=== PATIENT | female | born 1960 | race Caucasian/White ===

== ENCOUNTER 2016-09-21 14:30 | Emergency (ER) | payer BC ==
[~2016-09-21] VITALS: Ht 167.6 cm; Wt 80.0 kg
[~2016-09-21 14:30] MED LIST: LORTA5 PO; PARO12.5CR PO
[2016-09-21 14:34] VITALS: BP 151/95; PULSE 83; RESP 20; TEMP 97.7; O2SAT 98
--- NOTE | 2016-09-21 14:56 | PD ---
HPI Chief Complaint: Dizziness Time Seen by Provider: 14:42 Travel History International Travel<30 days: No Contact w/Intl Traveler<30days: No Traveled to known affect area: No History of Present Illness HPI The patient was seen and examined in the presence of the nurse. This patient complains of a room spinning dizziness. There is a circular motion to her dizziness which is worse when she turns her head. She is developed nausea and vomiting. Denies headache or neurologic deficit. Duration one day. No alleviating factors. Symptoms are moderately severe. sHe is diaphoretic. No chest pain or syncope. PFSH Past Medical History Cancer: No Cardiovascular Problems: No Diabetes: No Endocrine: No Genitourinary: No Hepatitis: No Hiatal Hernia: No Immune Disorder: No Musculoskeletal: No Neurologic: No Psychiatric: No Reproductive: No Respiratory: No Thyroid Disease: No ?: Not LMP: NOW Past Surgical History Abdominal Surgery: Yes (C SECTION) Cardiac Surgery: No Ear Surgery: No Endocrine Surgery: No Eye Surgery: No Genitourinary Surgery: No Gynecologic Surgery: Yes (LEFT BREAST BIOPSY) Joint Replacement: No Oral Surgery: No Pacemaker: No Thoracic Surgery: No Social History Alcohol Use: No Tobacco Use: No Substance Use: No Allergies-Medications (Allergen,Severity, Reaction): Coded Allergies: Sulfa (Verified Allergy, Severe, Hives, 09/21/16) Reported Meds & Prescriptions Reported Meds & Active Scripts Active Reported Oxycodone-Acetaminophen 5-325 mg Tab Unknown Dose PO DIRECTED PRN Paxil CR (Paroxetine HCl) 12.5 Mg Tab 12.5 Mg PO DAILY Review of Systems General / Constitutional: No: Fever Eyes: No: Visual changes HENT: Positive: Vertigo, Lightheadedness, No: Headaches Cardiovascular: Positive: Diaphoresis, No: Chest Pain or Discomfort Respiratory: No: Shortness of Breath Gastrointestinal: Positive: Nausea, Vomiting, No: Abdominal Pain Genitourinary: No: Dysuria Musculoskeletal: No: Pain Skin: No Rash Neurologic: No: Weakness Psychiatric: No: Depression Endocrine: No: Polydipsia Hematologic/Lymphatic: No: Easy Bruising Physical Exam Narrative GENERAL: Well-nourished, well-developed patient with vertigo and nausea . SKIN: Warm and diaphoretic. HEAD: Atraumatic. Normocephalic. EYES: Pupils equal and round. No scleral icterus. No injection or drainage. ENT: No nasal bleeding or discharge. Mucous membranes pink and moist. NECK: Trachea midline. No JVD. CARDIOVASCULAR: Regular rate and rhythm. No murmur appreciated. RESPIRATORY: No accessory muscle use. Clear to auscultation. Breath sounds equal bilaterally. GASTROINTESTINAL: Abdomen soft, non-tender, nondistended. Hepatic and splenic margins not palpable. Colostomy present MUSCULOSKELETAL: No obvious deformities. No clubbing. No cyanosis. No edema. NEUROLOGICAL: Awake and alert. No obvious cranial nerve deficits. Motor grossly within normal limits. Normal speech. PSYCHIATRIC: Appropriate mood and affect; insight and judgment normal. Data Data Last Documented VS Vital Signs Date Time Temp Pulse Resp B/P Pulse Ox O2 Delivery O2 Flow Rate FiO2 09/21/16 14:59 65 98 Room Air 09/21/16 14:34 97.7 20 151/95 Orders Sodium Chlor 0.9% 1000 Ml Inj (Ns 1000 M (09/21/16 15:00) Ondansetron Inj (Zofran Inj) (09/21/16 15:00) Meclizine (Antivert) (09/21/16 15:00) Iv Access Insert/Monitor (09/21/16 14:49) Complete Blood Count With Diff (09/21/16 14:49) Basic Metabolic Panel (Bmp) (09/21/16 14:49) Labs Laboratory Tests Test 09/21/16 15:00 White Blood Count 5.6 TH/MM3 Red Blood Count 4.08 MIL/MM3 Hemoglobin 11.5 GM/DL Hematocrit 34.7 % Mean Corpuscular Volume 85.1 FL Mean Corpuscular Hemoglobin 28.2 PG Mean Corpuscular Hemoglobin 33.1 % Concent Red Cell Distribution Width 14.5 % Platelet Count 218 TH/MM3 Mean Platelet Volume 7.5 FL Neutrophils (%) (Auto) 70.5 % Lymphocytes (%) (Auto) 23.4 % Monocytes (%) (Auto) 5.7 % Eosinophils (%) (Auto) 0.2 % Basophils (%) (Auto) 0.2 % Neutrophils # (Auto) 4.0 TH/MM3 Lymphocytes # (Auto) 1.3 TH/MM3 Monocytes # (Auto) 0.3 TH/MM3 Eosinophils # (Auto) 0.0 TH/MM3 Basophils # (Auto) 0.0 TH/MM3 CBC Comment DIFF FINAL Differential Comment Sodium Level 142 MEQ/L Potassium Level 3.6 MEQ/L Chloride Level 107 MEQ/L Carbon Dioxide Level 21.5 MEQ/L Anion Gap 14 MEQ/L Blood Urea Nitrogen 12 MG/DL Creatinine 0.94 MG/DL Estimat Glomerular Filtration 62 ML/MIN Rate Random Glucose 125 MG/DL Calcium Level 9.2 MG/DL MDM Medical Decision Making Medical Screen Exam Complete: Yes Emergency Medical Condition: Yes Medical Record Reviewed: Yes Differential Diagnosis Positional vertigo, labyrinthitis, dehydration, gastroenteritis Narrative Course I have reviewed the patient's electronic medical record. IV placed I gave her IV Zofran followed by 1 L normal saline IV bolus I gave her a dose of meclizine CBC is normal Metabolic profile is normal Extended cardiac monitoring reveals sinus rhythm without ectopy Vital signs are normal She is neurologically intact and on recheck she feels somewhat improved. Prescribed her meclizine and Zofran Recommend primary care follow-up Diagnosis Primary Impression: Positional vertigo Qualified Code: H81.10 - Positional vertigo, unspecified laterality Additional Instructions: The patient was advised to follow up with their physician and return if they worsen. The patient was warned about potential sedation for the medications they will receive on prescription. Med/Other Pt SpecificInfo: Prescription(s) given Scripts Meclizine 25 Mg Tab25 Mg PO TID PRN (VERTIGO) #20 TAB Ref 0 Prov:Saleem Madden MD 09/21/16 Ondansetron (Zofran)4 Mg Tab4 Mg PO Q6HR PRN (NAUSEA OR VOMITING) #15 TAB Ref 0 Prov:Saleem Madden MD 09/21/16 Disposition: 01 DISCHARGE HOME Condition: Stable Saleem Madden MD Sep 21, 2016 14:56
[2016-09-21] MEDS ORDERED: ONDANSETRON HCL 4 MG/2 ML VIAL IVP ONE (15:00)
[2016-09-21] MEDS ORDERED: SODIUM CHLOR 0.9% 1000 ML INJ 1,000 ML IV ONE (15:00)
[2016-09-21] MEDS ORDERED: MECLIZINE HCL 25 MG TAB PO ONE (15:00)
[2016-09-21] MEDS ORDERED: PARO12.5CR PO (15:05)
[2016-09-21] MEDS ORDERED: OXYC1TAB63 PO (15:06)
[2016-09-21 15:15] LABS: BASOPHIL % 0.2 % (0.0-2.0); EOSINOPHIL % 0.2 % (0.0-4.0); HEMATOCRIT 34.7 % (35.0-46.0); HEMO FLAGS DIFF FINAL; LYMPH % 23.4 % (9.0-44.0); LYMPHOCYTE # 1.3 TH/MM3 (1.0-4.8); MEAN CELL VOLUME 85.1 FL (80.0-100.0); MEAN CORPUSCULAR HEMOGLOBIN 28.2 PG (27.0-34.0); MEAN CORPUSCULAR HGB CONC 33.1 % (32.0-36.0); MONO % 5.7 % (0.0-8.0); NEUT % 70.5 % (16.0-70.0); PLATELET COUNT 218 TH/MM3 (150-450); RED BLOOD COUNT 4.08 MIL/MM3 (4.00-5.30); RED CELL DISTRIBUTION WIDTH 14.5 % (11.6-17.2); WHITE BLOOD COUNT 5.6 TH/MM3 (4.0-11.0)
[2016-09-21 15:22] LABS: POTASSIUM 3.6 MEQ/L (3.5-5.1)
[2016-09-21 15:25] LABS: BICARBONATE 21.5 MEQ/L (21.0-32.0)
[2016-09-21] MEDS ORDERED: MECL-62 PO (16:13)
[2016-09-21] MEDS ORDERED: ZOFR4TAB PO (16:13)
[2016-09-21 16:21] VITALS: BP 111/56; PULSE 70; RESP 17; O2SAT 98
== END 2016-09-21 17:10 | disposition home or self-care (01) ==
LOC: PHED 14:30
DX: R42 Dizziness and giddiness (principal); R11.2 Nausea with vomiting, unspecified
CPT/HCPCS: 80048; 85025; 96361; 96374; 99284; J2405; J7030

== ENCOUNTER → 2017-10-19 | Outpatient (CLI) | payer BC ==
[~2017-10-19] MED LIST changes: -LORTA5 PO; +MECL-62 PO; +OXYC1TAB63 PO; +ZOFR4TAB PO
--- NOTE | 2017-10-20 12:59 | EKG ---
Date Performed: 10/19/2017 Time Performed: 15:22:23 PTAGE: 56 years EKG: SINUS BRADYCARDIA MARKED LEFT AXIS DEVIATION INCOMPLETE RIGHT BUNDLE BRANCH BLOCK ABNORMAL ECG NO PREVIOUS TRACING DOCTOR: Leroy Singh Interpretating Date/Time 10/20/2017 12:52:03
== END ==
LOC: CPRE 14:55
PROVIDERS: ATTEND Obstetrics & Gynecology
DX: Z01.810 Encounter for preprocedural cardiovascular examination (principal)
CPT/HCPCS: 93005

== ENCOUNTER → 2017-10-27 | Day surgery (SDC) | payer BC ==
[~2017-10-27] VITALS: Ht 170.2 cm; Wt 77.9 kg
[~2017-10-27] MED LIST changes: +ACETAMINOPHEN 1000 MG/100 ML 100 ML IV ONE; +APREPITANT 40 MG CAP ONE; +CHLORHEXIDINE GLUCONATE 2 % 1 PACK (2 CLOTHS) TOPICAL PRN; +DEXAMETHASONE SOD PHOS 4 MG/ML VIAL IV ONE; +DO NOT ADM ANY ANTICOAGULANT DRUGS PRN; +FAMOTIDINE 20 MG/2 ML VIAL ONE; +IBUPROFEN 600 MG TAB PO PRN; +KETOROLAC TROMETHAMINE 30 MG/ML (IVP) VIAL IV PUSH ONE; +KETOROLAC TROMETHAMINE 30 MG/ML (IVP) VIAL IVP PRN; +LACTATED RINGER'S 1000 ML INJ 1,000 ML IV SCH; +LACTATED RINGER'S 1000 ML IV PRN; +LIDOCAINE HCL 1% PF 5 ML SYRINGE OTHER ONE; -MECL-62 PO; +METOPROLOL TARTRATE 25 MG TAB PO PRN; +MIDAZOLAM HCL 2 MG/2 ML VIAL ONE; +MORPHINE SULFATE 2 MG/ML INJ IV PUSH PRN; +ONDANSETRON HCL 4 MG/2 ML VIAL IV ONE; +ONDANSETRON HCL 4 MG/2 ML VIAL IVP PRN; -OXYC1TAB63 PO; +POVIDONE IODINE 5% (ANTISEPSIS KIT) 4 APPLICATIONS EACH NARE PRN; +PROMETHAZINE INJ 25 MG/ML VIAL IM PRN; +PROPOFOL 200 MG/20 ML AMP IV ONE; +SODIUM CHLORID 0.9% 500 ML IV PRN; +SODIUM CHLORIDE 0.9% FLUSH 10 ML FLUSH IV FLUSH PRN; +SODIUM CHLORIDE 0.9% FLUSH 10 ML FLUSH IV FLUSH SCH; +SUCCINYLCHOLINE CHLORIDE 200 MG/10 ML VIAL IV ONE; -ZOFR4TAB PO; +ceFAZolin 2 GM PREMIX 50 ML IV ONE; +diphenhydrAMINE HCL 25 MG CAP PO PRN; +oxyCODONE/ACETAMINOPHEN 5 MG/325 MG TAB PO PRN
[2017-10-27 13:36] VITALS: BP 112/70; PULSE 64; RESP 18; TEMP 97.9; O2SAT 100
--- NOTE | 2017-10-27 13:37 | MP ---
cc: FISH GOSS M.D., GEORGE MD DATE OF SURGERY 10/27/2017 PREOPERATIVE DIAGNOSIS Perimenopausal bleeding. PROCEDURE Exam under anesthesia, diagnostic hysteroscopy with dilatation and curettage and endometrial ablation with the NovaSure device. POSTOPERATIVE DIAGNOSIS Perimenopausal bleeding. SURGEON Vincent. ANESTHESIA General endotracheal intubation. ESTIMATED BLOOD LOSS Less than 25 cc. SPECIMEN Surgical specimens included endocervical and endometrial biopsies. OPERATIVE FINDINGS The patient had a large normal-appearing cervix. Endometrial cavity was symmetrical; measurements were 8.0 cm in length and 3.0 cm in width. The NovaSure device generated a wattage of 103 and the duration of the ablation was 94 seconds. INDICATIONS FOR PROCEDURE Patient with abnormal bleeding associated with menopause. Ultrasound revealed a slightly thickened endometrial cavity. Recommendation was to proceed with diagnostic hysteroscopy, biopsy and possible endometrial ablation. The patient received Ancef 2 grams prophylactically. She underwent general anesthesia with endotracheal intubation. She was then carefully positioned in the dorsal lithotomy position using candy-cane stirrups. She had sequentials placed on the lower extremities for VTE prophylaxis. She was prepped and draped. A timeout was conducted and agreed by all present in the room. Examination revealed findings as stated above. There were no focal abnormalities present. The uterus was intact. There was no perforation, mass lesion or deformity. The cervix was easily visualized with a bivalve retractor. The cervix was secured anteriorly with a single-tooth tenaculum and then endocervical curettings were obtained and labeled appropriately and sent in formalin. A uterine sound was placed to about 8 cm in a slightly anteverted fashion. The cervix was then dilated to accommodate a rigid 5 mm hysteroscope which was used to examine the cavity and findings were as described above. This was followed by simple curettage of the endometrium and then the NovaSure device was utilized. Measurements were as stated above. After complete electrodesiccation of the cavity that device was removed. Re-examination of the cavity proved intact. There was no perforation or active bleeding. The endometrial surface was ablated appropriately. At the completion of the case the final count was correct. The patient was stable. There was no active bleeding. She was taken to the recovery room on room air. MD ASHLEY Nino/ALEJANDRO /11:32 AM /1:09 PM
== END | disposition home or self-care (01) ==
LOC: HSDC 08:06
PROVIDERS: ATTEND Obstetrics & Gynecology
DX: N92.0 Excessive and frequent menstruation with regular cycle (principal); D64.9 Anemia, unspecified
CPT/HCPCS: 00952; 58563; 88305; J0131; J0330; J1100; J1885; J2250; J2405; J3010; J7120; J8501